=== PATIENT | male | born 1950 | race Caucasian/White ===

== ENCOUNTER 2018-08-26 08:30 | Day surgery (SDC) | payer MEDICARE, OTHER ==
[2018-08-25 10:10] VITALS: BMI 24.6
[~2018-08-26 08:30] MED LIST: LACTATED RINGERS 1,000 ML IV SCH
[2018-08-26 09:31] VITALS: TEMP 97.6
[2018-08-26] MEDS ORDERED: LIDOCAINE 1% 20 ML VIAL (10MG/ML) FOR IV START INTRADERMA ONE (09:33)
[2018-08-26 09:48] LABS: Glucose,Whole Blood 98 mg/dL (75-99)
[2018-08-26] MEDS ORDERED: PROPOFOL 10 MG/ML 20 ML VIAL IV ONE (09:54)
--- NOTE | 2018-08-26 10:11 | P.PCN ---
Date of Procedure: 08/26/18 Procedure(s) Performed: BRIEF HISTORY: Patient is a 67-year-old pleasant white male, scheduled for an elective colonoscopy as a part of screening for colorectal neoplasia. Last colonoscopy was 10 years ago. PROCEDURE PERFORMED: Colonoscopy. PREOPERATIVE DIAGNOSIS: Screening for colon cancer IV sedation per Anesthesia. PROCEDURE: After informed consent was obtained, the patient, was brought into the endoscopy unit. IV sedation was administered by Anesthesia under continuous monitoring. Digital rectal examination was normal. Initially the Olympus CF- 160 flexible video colonoscope was then inserted in the rectum, gradually advanced into the cecum without any difficulty. Careful examination was performed as the scope was gradually being withdrawn. Ileocecal valve and the appendiceal orifice were visualized and appeared normal. Prep was excellent. Mucosa of the cecum, ascending colon, transverse colon, descending colon, sigmoid colon, and rectum appeared normal. Retroflexion was performed in the rectum and no lesions were seen. The patient tolerated the procedure well. IMPRESSION: Normal-appearing colon from rectum to cecum with no evidence of colorectal neoplasia. RECOMMENDATIONS: Findings of this examination were discussed with the patient as well as his family. He was advised to have a repeat screening colonoscopy in 10 years.
[2018-08-26 10:16] VITALS: PULSE 67
[2018-08-26 10:32] VITALS: BP 126/74; RESP 16
== END 2018-08-26 11:18 | disposition home or self-care (01) ==
LOC: ORWHC2ENDO 08:30
PROVIDERS: ATTEND Internal Medicine Gastroenterology
DX: Z12.11 Encounter for screening for malignant neoplasm of colon (principal); I10 Essential (primary) hypertension; E78.5 Hyperlipidemia, unspecified; E11.9 Type 2 diabetes mellitus without complications; K21.9 Gastro-esophageal reflux disease without esophagitis; Z95.1 Presence of aortocoronary bypass graft; Z79.899 Other long term (current) drug therapy; Z79.84 Long term (current) use of oral hypoglycemic drugs; Z79.1 Long term (current) use of non-steroidal anti-inflammatories (NSAID); Z87.891 Personal history of nicotine dependence
CPT/HCPCS: J2704; G0121; 45378

== ENCOUNTER 2024-03-04 05:34 | Inpatient (IN) | payer MEDICARE, OTHER ==
[~2024-03-04 05:34] MED LIST changes: +ASPIRIN 325 MG TAB ONE; +ATORVASTATIN 80 MG TAB ONE; +HEPARIN SOD,PORK IN 0.45% NACL 250 ML IV ONE; +HEPARIN SODIUM 1,000 UN/ML (10ML VL) ONE; -LACTATED RINGERS 1,000 ML IV SCH
[2024-03-04] MEDS ORDERED: fentaNYL (PF) 50 MCG/ML 2 ML AMP ONE (13:46)
[2024-03-04] MEDS ORDERED: MIDAZOLAM 2 MG/2 ML VIAL ONE (13:46)
[2024-03-04] MEDS ORDERED: HEPARIN SODIUM 1,000 UN/ML (10ML VL) ONE (13:46)
[2024-03-04] MEDS ORDERED: ASPIRIN 325 MG TAB ONE (13:46)
[2024-03-04] MEDS ORDERED: ATORVASTATIN 80 MG TAB ONE ×2 (13:46→21:11)
[2024-03-04] MEDS ORDERED: VERAPAMIL 2.5 MG/ML 4 ML VIAL ONE (14:06)
[2024-03-04] MEDS ORDERED: SODIUM CHLORIDE 0.9% 1,000 ML BAG ONE (14:06)
[2024-03-04] MEDS ORDERED: LIDOCAINE 1% INJ 10MG/ML (20 ML MDV) ONE (14:06)
[2024-03-04] MEDS ORDERED: TICAGRELOR 90 MG TAB ONE (14:16)
[2024-03-04] MEDS ORDERED: NITROGLYCERIN-D5W PMX 25 MG/250 ML BTL IV ONE (14:55)
[2024-03-04] MEDS: IOPAMIDOL-370 200ML BTL INJ ONE (15:23)
[2024-03-05] MEDS ORDERED: LIDOCAINE VISCOUS 2% 15 ML CUP ONE (00:01)
[2024-03-05] MEDS ORDERED: MAG HYDROX/AL HYDROX/SIMETH 30 ML CUP ONE (00:01)
[2024-03-05] MEDS ORDERED: HYOSCYAMINE ELIXIR 250 MCG/10 ML BTL ONE (00:01)
[2024-03-05] MEDS ORDERED: ASPIRIN 81 MG ONE (08:30)
[2024-03-05] MEDS ORDERED: TICAGRELOR 90 MG TAB ONE ×2 (12:13→21:13)
[2024-03-05] MEDS ORDERED: LOSARTAN 25 MG TAB ONE (12:13)
[2024-03-05] MEDS ORDERED: METOPROLOL TARTRATE 25 MG TAB ONE ×2 (12:13→21:13)
[2024-03-06] MEDS ORDERED: TICAGRELOR 90 MG TAB ONE ×2 (06:27→10:33)
[2024-03-06] MEDS ORDERED: LOSARTAN 25 MG TAB ONE ×2 (06:27→10:33)
[2024-03-06] MEDS ORDERED: METOPROLOL TARTRATE 25 MG TAB ONE ×2 (06:27→10:33)
[2024-03-06] MEDS ORDERED: ATORVASTATIN 80 MG TAB ONE (10:33)
[2024-03-06] MEDS ORDERED: ASPIRIN 325 MG TAB ONE (10:33)
[2024-03-06] MEDS ORDERED: fentaNYL (PF) 50 MCG/ML 2 ML AMP ONE ×2 (13:55→22:16)
[2024-03-06] MEDS ORDERED: HEPARIN SODIUM 1,000 UN/ML (10ML VL) ONE ×2 (13:55→16:39)
[2024-03-06] MEDS ORDERED: MIDAZOLAM 2 MG/2 ML VIAL ONE ×3 (13:56→21:46)
[2024-03-06] MEDS ORDERED: LIDOCAINE 1% INJ 10MG/ML (20 ML MDV) ONE ×2 (13:56→16:49)
[2024-03-06] MEDS ORDERED: ONDANSETRON 4 MG/2 ML VIAL ONE (17:44)
[2024-03-07] MEDS ORDERED: SODIUM CHLORIDE 0.9% 250 ML BAG ONE (00:01)
[2024-03-07] MEDS ORDERED: TICAGRELOR 90 MG TAB ONE ×3 (00:01→20:44)
[2024-03-07] MEDS ORDERED: NOREPINEPHRINE 1 MG/ML 4 ML VIAL IV ONE (00:01)
[2024-03-07] MEDS ORDERED: HYDROmorphone 0.5 MG/0.5 ML SYRINGE ONE (04:06)
[2024-03-07] MEDS ORDERED: ASPIRIN 81 MG ONE (09:40)
[2024-03-07] MEDS ORDERED: LOSARTAN 50 MG TAB ONE (09:40)
[2024-03-07] MEDS ORDERED: PANTOPRAZOLE 40 MG TABLET PO ONE (09:40)
[2024-03-07] MEDS ORDERED: MAGNESIUM SULFATE-D5W PMX 100 ML IVPB ONE (09:41)
[2024-03-07] MEDS ORDERED: MORPHINE SULFATE 2 MG/ML SYRINGE ONE ×3 (10:19→22:39)
[2024-03-07] MEDS ORDERED: ATORVASTATIN 40 MG TAB ONE (13:27)
[2024-03-08] MEDS ORDERED: ASPIRIN 81 MG ONE (08:32)
[2024-03-08] MEDS ORDERED: PANTOPRAZOLE 40 MG TABLET PO ONE (08:32)
[2024-03-08] MEDS ORDERED: ATORVASTATIN 40 MG TAB ONE (08:32)
[2024-03-08] MEDS ORDERED: TICAGRELOR 90 MG TAB ONE ×2 (08:33→21:04)
[2024-03-08] MEDS ORDERED: METOPROLOL TARTRATE 12.5 MG TAB ONE ×2 (10:47→21:04)
[2024-03-09] MEDS ORDERED: DILTIAZEM 125 MG/25 ML VIAL IV ONE (00:01)
[2024-03-09] MEDS ORDERED: SODIUM CHLORIDE 0.9% 100 ML BAG ONE (00:01)
[2024-03-09] MEDS ORDERED: ZOLPIDEM 5 MG TAB ONE ×2 (00:22→21:46)
[2024-03-09] MEDS ORDERED: NITROGLYCERIN SL TABS 0.4 MG TAB SUBLINGUAL ONE ×2 (03:24→03:32)
[2024-03-09] MEDS ORDERED: MORPHINE SULFATE 2 MG/ML SYRINGE ONE (03:44)
[2024-03-09] MEDS ORDERED: ALPRAZolam 0.25 MG TAB ONE (05:41)
[2024-03-09] MEDS ORDERED: METOPROLOL TARTRATE 12.5 MG TAB ONE ×3 (05:57→21:43)
[2024-03-09] MEDS ORDERED: ASPIRIN 81 MG ONE (07:42)
[2024-03-09] MEDS ORDERED: TICAGRELOR 90 MG TAB ONE ×2 (07:42→21:43)
[2024-03-09] MEDS ORDERED: PANTOPRAZOLE 40 MG TABLET PO ONE (07:42)
[2024-03-09] MEDS ORDERED: ATORVASTATIN 40 MG TAB ONE (07:42)
[2024-03-09] MEDS ORDERED: POTASSIUM CHLORIDE ER 20 MEQ TAB.ER PO ONE ×2 (11:46→13:29)
[2024-03-10] MEDS ORDERED: ALPRAZolam 0.25 MG TAB ONE (01:58)
[2024-03-10] MEDS ORDERED: SODIUM CHLORIDE 0.9% 100 ML BAG IV ONE (04:00)
[2024-03-10] MEDS ORDERED: DILTIAZEM 125 MG/25 ML VIAL IV ONE (04:00)
[2024-03-10] MEDS ORDERED: METOPROLOL TARTRATE 12.5 MG TAB ONE (05:53)
[2024-03-10] MEDS ORDERED: POTASSIUM CHLORIDE ER 20 MEQ TAB.ER PO ONE ×3 (07:03→20:43)
[2024-03-10] MEDS ORDERED: PANTOPRAZOLE 40 MG TABLET PO ONE (09:55)
[2024-03-10] MEDS ORDERED: ATORVASTATIN 40 MG TAB ONE (09:55)
[2024-03-10] MEDS ORDERED: ASPIRIN 81 MG ONE (09:56)
[2024-03-10] MEDS ORDERED: TICAGRELOR 90 MG TAB ONE ×2 (09:56→20:43)
[2024-03-10] MEDS ORDERED: HYDROmorphone 0.5 MG/0.5 ML SYRINGE ONE (09:56)
[2024-03-10] MEDS ORDERED: METOPROLOL TARTRATE 50 MG TAB ONE ×2 (11:13→20:43)
[2024-03-10] MEDS ORDERED: HYDROcodone/APAP 5-325MG 1 EACH TAB ONE ×2 (15:01→20:42)
[2024-03-11] MEDS ORDERED: SODIUM FERRIC GLUCONAT-SUCROSE 62.5 MG/5 ML VIAL ONE (00:01)
[2024-03-11] MEDS ORDERED: SODIUM CHLORIDE 0.9% 100 ML BAG ONE (00:01)
[2024-03-11] MEDS ORDERED: TRIAMCINOLONE ACET 0.5% CREAM 15 GM TUBE TOPICAL ONE (00:01)
[2024-03-11] MEDS ORDERED: POTASSIUM CHLORIDE ER 20 MEQ TAB.ER PO ONE ×2 (00:05→16:14)
[2024-03-11] MEDS ORDERED: PANTOPRAZOLE 40 MG TABLET PO ONE (08:35)
[2024-03-11] MEDS ORDERED: ASPIRIN 81 MG ONE (08:36)
[2024-03-11] MEDS ORDERED: METOPROLOL TARTRATE 50 MG TAB ONE ×2 (08:36→20:24)
[2024-03-11] MEDS ORDERED: TICAGRELOR 90 MG TAB ONE (08:36)
[2024-03-11] MEDS ORDERED: ATORVASTATIN 40 MG TAB ONE (08:36)
[2024-03-11] MEDS ORDERED: LIDOCAINE 4% PATCH TOPICAL ONE (15:21)
[2024-03-11] MEDS ORDERED: diphenhydrAMINE 25 MG CAP PO PRN (21:06)
[2024-03-11] MEDS ORDERED: MORPHINE SULFATE 2 MG/ML SYRINGE IVP PRN (21:10)
[2024-03-11] MEDS ORDERED: HYDROcodone/APAP 5-325MG 1 EACH TAB PO PRN (21:17)
[2024-03-11] MEDS ORDERED: ZOLPIDEM 5 MG TAB PO PRN (21:18)
[2024-03-11] MEDS ORDERED: ALPRAZolam 0.25 MG TAB PO PRN (21:19)
[2024-03-11] MEDS ORDERED: MAG HYDROX/AL HYDROX/SIMETH 30 ML CUP PO PRN (21:19)
[2024-03-11] MEDS ORDERED: ATROPINE SULFATE 0.1 MG/ML 10ML SYRINGE IVP PRN (21:20)
[2024-03-11] MEDS ORDERED: HYDROmorphone 0.5 MG/0.5 ML SYRINGE IVP PRN (21:22)
[2024-03-11] MEDS ORDERED: NITROGLYCERIN SL TABS 0.4 MG TAB SUBLINGUAL PRN (21:24)
[2024-03-12] MEDS: TRIAMCINOLONE ACET 0.5% CREAM 15 GM TUBE TOPICAL SCH (03:10)
[2024-03-12] MEDS: Potassium Replacement Protocol 1 EACH MISC MISCELLANE ONE (03:10)
[2024-03-12] MEDS: PANTOPRAZOLE 40 MG TABLET PO SCH (06:02)
--- NOTE | 2024-03-12 07:33 | XR ---
EXAMINATION TYPE: XR chest 2V DATE OF EXAM: 03/12/2024 6:55 AM CLINICAL INDICATION: Male, 73 years old with history of Left pneumothorax; [facility] COMPARISON: Chest radiographs from 10/10/2021 TECHNIQUE: XR chest 2V Frontal view of the chest. FINDINGS: Lungs/Pleura: Trace left pleural effusion. There is no evidence of right pleural effusion, focal cons olidation, or pneumothorax. Pulmonary vascularity: Unremarkable. Heart/mediastinum: Cardiomediastinal silhouette is unremarkable. Musculoskeletal: No acute osseous pathology. IMPRESSION: No appreciable pneumothorax on today's exam. Trace left pleural effusion.
[2024-03-12] MEDS ORDERED: ASPIRIN 81 MG ONE (08:39)
[2024-03-12] MEDS ORDERED: METOPROLOL TARTRATE 50 MG TAB ONE (08:39)
[2024-03-12] MEDS: ATORVASTATIN 40 MG TAB PO SCH (08:44)
[2024-03-12] MEDS: ASPIRIN 81 MG PO SCH (08:44)
[2024-03-12] MEDS: METOPROLOL TARTRATE 50 MG TAB PO SCH (08:44)
[2024-03-12] MEDS: TICAGRELOR 90 MG TAB PO SCH (08:45)
[2024-03-12 10:09] VITALS: BP 132/78; PULSE 115; RESP 18; TEMP 98
--- NOTE | 2024-03-12 10:18 | P.PN ---
Subjective Progress Note Date: 03/12/24 SUBJECTIVE: Doing well from cardiovascular standpoint. Hemoglobin is stable, no further signs of bleeding, bilateral groin hematomas are is stable with no increase in size. CT abdomen was negative for any retroperitoneal bleed. Received 2 IV iron infusions. No chest pain or shortness of breath. Lidocaine patch helped with subcutaneous left-sided chest pain that he had from paracentesis. No signs of pericarditis. PHYSICAL EXAMINATION Vital signs reviewed. Head: Normocephalic. Eyes: Sclerae nonicteric. Neck: Brisk carotid upstroke, no jugular venous distention. Lungs: Clear to auscultation. Mild diminished breath sounds in bilateral bases Heart: Regular rate and rhythm, S1-S2, no S3, Abdomen: Soft nontender, bowel sounds present, Extremities: No edema, hematoma noticed in bilateral groin, stable Neuro: Alert, oriented, no focal neurological deficits. Detailed neuro exam was not performed. ASSESSMENT NSTEMI status post complicated PCI to RCA status post RCA perforation with pericardial tamponade requiring pericardiocentesis. Multivessel CAD Essential hypertension Anemia PLAN Patient is okay to be discharged from cardiovascular standpoint. Continue aspirin, Brilinta 90 twice daily, atorvastatin 40, metoprolol 50 twice daily, sublingual nitroglycerin, Discharge on p.o. iron supplementation. Follow-up outpatient with Dr. Dennis in next 1 week. Detailed instructions were given to the patient. Bo Velasquez MD, FACC, RPVI Thank you for allowing [facility] to participate in this patient's care. Please contact us in case of any followup questions. Objective - Vital Signs Vital signs: Vital Signs Temp 98 F 03/12/24 08:00 Pulse 115 H 03/12/24 08:00 Resp 18 03/12/24 08:00 BP 132/78 03/12/24 08:00 Pulse Ox 99 03/12/24 08:00 FiO2 Intake & Output 03/11/24 03/12/24 03/12/24 18:59 06:59 18:59 Weight 79.5 kg
--- NOTE | 2024-03-12 11:29 | P.DS ---
Providers Date of admission: 03/04/24 05:34 Expected date of discharge: 03/12/24 Attending physician: Kaiser Reynolds MD Consults: 03/03/24 22:07 Consult Physician Routine Consulting Provider: Stanford Scott Consult Reason/Comments: STEMI Do you want consulting provider notified?: Already Contacted Placement Type Exists?: Yes Primary care physician: Stated None Hospital Course: Discharge diagnoses -Non-ST ovation myocardial infarction -Multivessel CAD -Pericardial effusion -Acute blood loss anemia -Bilateral pleural effusions -Moran disease -Essential hypertension 73-year-old male presented to the hospital with lower extremity. Had elevated troponin, was on heparin drip. Was seen by cardiology service who did a heart catheterization with stenting. Procedure was complicated by hemopericardium due to RCA rupture. After that he had a pericardiocentesis procedure with drain put in. He was moved to the ICU and was requiring pressors due to hypotension. His hemoglobin dropped and he was transfused packed red blood cells. Also had IV iron infusion. Also postoperatively he had bilateral groins hematoma, CT scan of the abdomen pelvis was negative for retroperitoneal bleeding. Hematomas were stable upon discharge. Follow-up echocardiogram showed stabilized pericardial size. No further bleeding was noted. He also developed bilateral pleural effusion, followed by pulmonary with a left- sided thoracentesis. 950 cc of fluid was taken out. He was subsequently started on aspirin, Brilinta, continued on metoprolol. Statin was added to his regimen. He is currently feeling much better. Hemoglobin stabilized. He was cleared by cardiology for discharge. He will be discharged home in stable condition. Patient was seen and examined on the day of discharge 03/12 Time for discharge 35 minutes. Plan - Discharge Summary New Discharge Prescriptions: New Ferrous Sulfate [Iron (65 MG Elemental)] 325 mg PO TID 30 Days #90 tab Ticagrelor [Brilinta] 90 mg PO BID 30 Days #60 tab Atorvastatin [Lipitor] 40 mg PO DAILY 30 Days #30 tab Continue Omeprazole [PriLOSEC] 20 mg PO AC-BRKFST [place]-3 Acid Ethyl Esters [Lovaza] 1 gm PO BID Aspirin EC [Ecotrin Low Dose] 81 mg PO DAILY ramipriL [Altace] 10 mg PO DAILY Meloxicam [Mobic] 15 mg PO DAILY Ezetimibe [Zetia] 10 mg PO DAILY Metoprolol Succinate (ER) [Toprol XL] 50 mg PO DAILY metFORMIN HCL ER [Glucophage XR] 500 mg PO BID Niacin 1,000 mg PO HS Discontinued Atorvastatin [Lipitor] 20 mg PO HS Furosemide [Lasix] 40 mg PO MOWEFR Potassium Chloride [K-Tab ER] 10 meq PO MOWEFR Ferrous Sulfate [Iron (65 MG Elemental)] 1 each PO DAILY Cholecalciferol (Vitamin D3) [Vitamin D3] 2,000 unit PO DAILY Discharge Medication List Aspirin EC [Ecotrin Low Dose] 81 mg PO DAILY 08/25/18 [History] Ezetimibe [Zetia] 10 mg PO DAILY 08/25/18 [History] Meloxicam [Mobic] 15 mg PO DAILY 08/25/18 [History] Metoprolol Succinate (ER) [Toprol XL] 50 mg PO DAILY 08/25/18 [History] Niacin 1,000 mg PO HS 08/25/18 [History] Magalia-3 Acid Ethyl Esters [Lovaza] 1 gm PO BID 08/25/18 [History] Omeprazole [PriLOSEC] 20 mg PO AC-BRKFST 08/25/18 [History] metFORMIN HCL ER [Glucophage XR] 500 mg PO BID 08/25/18 [History] ramipriL [Altace] 10 mg PO DAILY 08/25/18 [History] Atorvastatin [Lipitor] 40 mg PO DAILY 30 Days #30 tab 03/12/24 [Rx] Ferrous Sulfate [Iron (65 MG Elemental)] 325 mg PO TID 30 Days #90 tab 03/12/24 [Rx] Ticagrelor [Brilinta] 90 mg PO BID 30 Days #60 tab 03/12/24 [Rx]
--- NOTE | 2024-03-12 12:51 | P.PN ---
Subjective Progress Note Date: 03/12/24 Principal diagnosis: Acute none ST elevation myocardial infarction Patient was seen on 03/12/2024, patient came in with acute non-ST elevation myocardial infarction underwent cardiac catheterization and this was complicated by RCA perforation with pericardial effusion tamponade and required pericardiocentesis. In addition the patient developed left-sided hemothorax and left apical pneumothorax. I saw this patient while in the ICU, and I performed thoracentesis on 03/10/2024, and there was dramatic improvement noted in his pleural effusion/hemothorax. And the left-sided apical pneumothorax has also resolved. Patient is doing well today, asymptomatic, and I will clear for discharge if cleared by cardiology. Objective - Vital Signs Vital signs: Vital Signs Temp 98 F 03/12/24 08:00 Pulse 115 H 03/12/24 08:00 Resp 18 03/12/24 08:00 BP 132/78 03/12/24 08:00 Pulse Ox 99 03/12/24 08:00 FiO2 Intake & Output 03/11/24 03/12/24 03/12/24 18:59 06:59 18:59 Weight 79.5 kg - Exam General: The patient is awake and alert, in no distress, and does not appear acutely ill. Skin: Skin is warm and dry and no rashes or lesions are noted. Eye: Pupils are equal, round and reactive to light, extra-ocular movements are intact; there is normal conjunctiva bilaterally. Ears, nose, mouth and throat: There are moist mucous membranes and no oral lesions. Neck: The neck is supple, there is no tenderness or JVD. Cardiovascular: There is a regular rate and rhythm. No murmur, rub or gallop is appreciated. Respiratory: Clear bilaterally no rhonchi no wheezes Gastrointestinal: Soft, non-distended, non-tender abdomen without masses or organomegaly noted. There is no rebound or guarding present. Bowel sounds are unremarkable. Back: There is no tenderness to palpation in the midline. There is no obvious deformity. Musculoskeletal: Normal ROM, no tenderness, There is no pedal edema. There is no calf tenderness or swelling. No cords were appreciated. Neurological: CN II-XII intact, Cranial nerves III through XII are intact. There are no obvious motor or sensory deficits. Coordination appears grossly intact. Speech is normal. Psychiatric: Cooperative, appropriate mood & affect, normal judgment. Assessment and Plan Assessment: Impression: Acute non-ST elevation myocardial infarction Coronary artery disease Status post RCA perforation during cardiac catheterization and stenting Left-sided hemothorax, and left-sided pneumothorax Pericardiac effusion/tamponade requiring pericardiocentesis Recommendation: Pulmonary moreno the patient is doing great, I am clearing the patient for discharge if cleared by other consultants. Patient could see me in the office on outpatient basis postdischarge at 1 week Time with Patient: Less than 30
[2024-03-12] MEDS ORDERED: FERROUS SULFATE 325 MG TAB PO SCH (17:30)
--- NOTE | 2024-03-21 10:45 | XR ---
EXAMINATION TYPE: XR chest 1V DATE OF EXAM: 03/09/2024 10:17 AM CLINICAL INDICATION: Male, 73 years old with history of DAILY PORTABLE; [facility] COMPARISON: Chest radiographs from 10/10/2021 TECHNIQUE: XR chest 1V Frontal view of the chest. FINDINGS: Lungs/Pleura: Left apical pneumothorax remains. There is no evidence of pleural effusion, focal conso lidation, or right pneumothorax. Pulmonary vascularity: Unremarkable. Heart/mediastinum: Cardiomediastinal silhouette is unremarkable. Musculoskeletal: No acute osseous pathology. IMPRESSION: Left apical pneumothorax remains
--- NOTE | 2024-03-24 13:04 | XR ---
EXAMINATION TYPE: XR chest 1V portable DATE OF EXAM: 03/10/2024 COMPARISON: Chest radiographs from 03/09/2024 TECHNIQUE: XR chest 1V portable Portable AP radiograph of the chest. CLINICAL INDICATION:Male, 73 years old with history of LEFT THORACENTESIS; FINDINGS: Lungs/Pleura: No appreciable pneumothorax. Blunting of the left costophrenic angle. No focal consolid ation. Pulmonary vascularity: Unremarkable. Heart/mediastinum: Cardiomediastinal silhouette is enlarged and stable. Atherosclerotic calcificatio ns are seen in the aorta. Musculoskeletal: No acute osseous pathology. IMPRESSION: Trace left pleural effusion without appreciable pneumothorax.
--- NOTE | 2024-03-28 13:19 | CT ---
Patient: Son Sewell Ordering Physician: Unknown, Unknown ID: [id number] Phone, Pager: Phone: N/A Pager: N/A : 1950 Age/Gender: 73Y, O Primary Location: N/A Procedure: RENAL STONE Study Date: 03/09/2024 9:59:07 AM EXAMINATION TYPE: CT abdomen pelvis wo con DATE OF EXAM: 03/09/2024 COMPARISON: None INDICATION: Retroperitoneal hematoma DLP: 714.8 mGycm, Automated exposure control for dose reduction was used. CONTRAST: 0 mL of Isovue 300. Study performed without Oral Contrast TECHNIQUE: Axial images were obtained from above the diaphragm to the pubic rami in the axial plane a t 5 mm thick sections. Reconstructed images are reviewed on the computer in the coronal plane. FINDINGS: Limited CT sections are obtained the lung bases. Small bilateral pleural effusions are present. Comp ressive atelectasis adjacent to the pleural effusions. There is a small left pneumothorax. This was called to the ICU nurse by Dr. Morales by telephone 1045 hours 03/09/2024. Current depth based on supine views is 1.5 cm Moderate pericardial effusion is present.. CT ABDOMEN: No retroperitoneal hematoma identified. Liver: There is a 1.5 cm cyst on the left lobe liver. Spleen: Normal Pancreas: Normal Adrenal glands: The adrenal glands are normal. Gallbladder: Normal Kidneys: No masses are evident. No hydronephrosis is present. No cysts are present. No renal stone s are identified. Aorta: Vascular calcification is within the aorta. Inferior vena cava: Normal. CT PELVIS: Small amount of free fluid is within the pelvis measuring 7 Hounsfield units. Loops of bowel within the abdomen and pelvis are normal. Diverticular changes are within the sigmoid colon. No adjacent inflammatory changes evident. Appendix: Not identified. No dilated tubular structure or inflammatory changes evident. Urinary bladder: Decompressed with Goldberg catheter. Genitourinary structures: Prostate has mild prominence. Osseous structures: No suspicious lytic or sclerotic lesions. IMPRESSION: 1. Small left sided pneumothorax. This currently has a depth of 1.5 cm within the [id number] but is incompletely visualized. Report was called to the patient's nurse by Dr. Morales by telephone at t he time of interpretation 1045 hours 03/09/2024. 2. Small bilateral pleural effusions with adjacent compressive atelectasis. 3. Moderate pericardial effusion. 4. No retroperitoneal hematoma identified. 5. Small amount of free fluid within the pelvis.
--- NOTE | 2024-03-31 08:32 | CA ---
Transthoracic Echo Report Name: Son Wilkes MRN: [id number] Age: 73 Gender: M : 1950 Exam Date: 03/06/2024 16:51 Exam Location: [place] [facility] Ht (in): Wt (lb): Ordering Physician: Attending/Referring Phys: Observer [employer]ing Adilia Martin RDCS Procedure CPT: Indications: Cardiac Hx: Technical Quality: Technically difficult study Contrast 1: Total Dose (mL): Contrast 2: Total Dose (mL): MEASUREMENTS (Male / Female) Normal Values FINDINGS Left Ventricle Right Ventricle Right Atrium Left Atrium Mitral Valve Aortic Valve Tricuspid Valve Pulmonic Valve Pericardium Pericardial effusion. Aorta CONCLUSIONS Stat during catheterization for pericardial effusion. Limited echo. Pericardial effusion was noted, small in size Previewed by: Dr. Abner Viear MD (Electronically Signed) Final Date: 08 March 2024 07:16
--- NOTE | 2024-03-31 08:37 | CA ---
Transthoracic Echo Report Name: Son Wilkes Age: 73 Gender: M : 1950 Exam Date: 03/07/2024 07:35 Exam Location: [place] [facility] Ht (in): 73 Wt (lb): 172 Ordering Physician: Attending/Referring Phys: Cloth Bleaching Range Tender Adilia Martin RDCS Procedure CPT: Indications: Cardiac Hx: Technical Quality: Very technically difficult study Contrast 1: Definity Total Dose (mL): 2 Contrast 2: Total Dose (mL): MEASUREMENTS (Male / Female) Normal Values 2D ECHO LV Diastolic Volume MOD BP 76.2 cm??? 67 - 155 / 56 - 104 cm??? LV Systolic Volume MOD BP 24.9 cm??? 22 - 58 / 19 - 49 cm??? LV Ejection Fraction MOD BP 67.3 % >= 55 % LV Cardiac Index MOD BP 2534.1 cm???/min???m??? LV Diastolic Volume MOD 4C 74.1 cm??? LV Systolic Volume MOD 4C 24.3 cm??? LV Ejection Fraction MOD 4C 67.2 % LV Cardiac Index MOD 4C 2462.1 cm???/min???m??? LV Diastolic Length 4C 7.6 cm LV Systolic Length 4C 6.1 cm LV Diastolic Volume MOD 2C 74.5 cm??? LV Systolic Volume MOD 2C 24.6 cm??? LV Ejection Fraction MOD 2C 67.0 % LV Cardiac Index MOD 2C 2466.0 cm???/min???m??? LV Diastolic Length 2C 7.2 cm LV Systolic Length 2C 5.8 cm FINDINGS Left Ventricle Left ventricular ejection fraction is estimated at 60-65 %. Right Ventricle Right Atrium Left Atrium Mitral Valve Aortic Valve Tricuspid Valve Pulmonic Valve Pericardium No pericardial effusion. Aorta CONCLUSIONS Limited echo. Normal left ventricular systolic function No pericardial effusion Definity ECHO contrast used for improved visualization of the endocardial borders (inadequate visualization of two or more contiguous segments). Previewed by: Dr. Abner Viera MD (Electronically Signed) Final Date: 07 March 2024 11:55
--- NOTE | 2024-03-31 08:51 | CA ---
Transthoracic Echo Report Name: Son Wilkes Age: 73 Gender: M : 1950 Exam Date: 03/08/2024 09:08 Exam Location: [place] [facility] Ht (in): 72 Wt (lb): 172 Ordering Physician: Attending/Referring Phys: Drying Machine Back Tender Samantha Tamez RDCS Procedure CPT: Indications: Cardiac Hx: pericardial window, limied study Technical Quality: Poor Contrast 1: Total Dose (mL): Contrast 2: Total Dose (mL): MEASUREMENTS (Male / Female) Normal Values FINDINGS Left Ventricle Left ventricular ejection fraction is estimated at 55-60 %. Right Ventricle Right Atrium Left Atrium Mitral Valve Aortic Valve Tricuspid Valve Pulmonic Valve Pericardium Small pericardial effusion. Aorta CONCLUSIONS Technically difficult study. Limited echo. Normal left ventricular size and systolic function Small pericardial effusion Previewed by: Dr. Abner Viera MD (Electronically Signed) Final Date: 08 March 2024 12:16
--- NOTE | 2024-04-03 11:27 | XR ---
Melodie Son ID: [id number] : 1950 EXAMINATION TYPE: XR chest 1V DATE OF EXAM: 03/08/2024 COMPARISON: 03/07/2024 HISTORY: 73-year-old male shortness of breath, ICU follow-up TECHNIQUE: Single frontal view of the chest is obtained. FINDINGS: Heart border line in size. Mild patchy left basilar opacity similar to slightly increased. Remainder of the lungs are clear. There is a small 9 mm left apical pneumothorax noted. The previous left-sided catheter is no longer seen. Minimal atherosclerotic arch calcification. IMPRESSION: 1. New small 9 mm left apical pneumothorax. The previous left-sided catheter is no longer seen. 2. Some increasing patchy opacity at the left base. With downtime, critical findings are being relayed to the floor by lance Zimmerman technologist.
--- NOTE | 2024-04-04 10:51 | XR ---
Son Sewell ID: [id number] : 1950 EXAMINATION TYPE: XR chest 1V DATE OF EXAM: 03/07/2024 COMPARISON: 03/06/2024 HISTORY: 73-year-old ICU follow-up, shortness of breath TECHNIQUE: Single frontal view of the chest. FINDINGS: A catheter is noted at the left base when tip projecting over the lower midline heart. No pneumothorax or sizable pleural effusion. Some mild patchy density at the left base is increased. IMPRESSION: Pleural versus pericardial catheter in place on the left. Some patchy atelectasis or ear ly infiltrate has developed now at the left base.
--- NOTE | 2024-04-06 15:45 | CDI ---
Documentation Clarification Form Date: 04/06/2024 02:59:06 PM From: Yolanda Clark RN, CCDS Phone: [phone] Admit Date: 03/04/2024 05:34:00 AM Patient Name: Son Wilkes Visit Number: [id number] Discharge Date: 03/12/2024 12:24:00 PM ATTENTION: The Clinical Documentation Specialists (CDI) and [facility] Coding Staff appreciate your assistance in clarifying documentation. Please respond to the clarification below the line at the bottom and electronically sign. The CDI & [facility] Coding staff will review the response and follow-up if needed. Please note: Queries are made part of the Legal Health Record. If you have any questions, please contact the author of this message via ITS. Doctor Jovani Dennis: Catheter induced dissection is documented in the 03/06 PCI report. Additional clarification is requested regarding the relationship, if any, that exists between the diagnosis and the procedure. Patients Admitting Diagnosis: NSTEMI, 80% stenosis RCA Post-Operative Diagnosis: NSTEMI, <10% stenosis post procedure, RCA dissection, PDA perforation Procedure performed: PTCA/stents History/Risk Factors: leukopenia and hyperlipidemia. Presents with CP and pressure. Admitted with NSTEMI, s/p PTCA/stents. Clinical Indicators: 03/06 PCI report: "Previous difficulty inserting stent distally and failed balloon with recurrent CP, increased troponin. Therefore 8Fr femoral sheath and 8Fr catheter with guidewire and skylar wire. Rotational atherectomy 1.25mm Daniel balloon. Placed overlapping Xience KAITLIN distally. Final images with catheter induced dissection. Final angiograms distal PDA perforation. Continued leak. Bedside echo with tamponade and therefore pericardial drain. Placed 350cc bloody output from drain. Monitor output and ICU care." 03/07 Cardiology: "patient had proximal RCA dissection - PDA perforation. Had pericardial drain >500cc. Now no drainage." Treatment: 03/06 @17:29 pigtail drainage catheter inserted over guidewire under fluoro into pericardial space, contrast injected through pigtail, pigtail removed by Dr. Dennis, pressure held. Second attempt at access into pericardium. Access obtained; wire inserted under fluoro to verify placement. Dilator exchanged for pigtail catheter, blood aspirated from pericardium through pigtail catheter. Total blood withdrawn 350cc Please clarify the etiology of the dissection/perforated RCA/PDA: [ ] the perforated RCA was due to calcified artery randle [ X ] the perforated RCA was due to the procedure [ ] Other please specify ____ [ ] Unable to determine MTDD
--- NOTE | 2024-04-17 15:51 | PN ---
PROGRESS NOTE At the time of my evaluation, patient was seen in room 375. SUBJECTIVE: Today, patient is doing well. Still reports chest pain, but only positional, much improved from yesterday. He says that sometimes when he takes a deep breath, it is hard to catch it due to onset of pain. I discussed this case with Cardiology yesterday and they are planning to take the patient to heart catheterization due to increased troponins post cath. They are planning to fix the left circumflex lesion today. The patient denies fevers, chills, palpitations, diaphoresis. OBJECTIVE: VITAL SIGNS: Today, patient is afebrile, 166/90, heart rate is 75, 99% on room air. GENERAL: He is in no apparent distress. CHEST: No accessory muscle use. Symmetric chest expansion. EXTREMITIES: Perfusing all extremities well. LABORATORY DATA: Lab work demonstrates a troponin that is down trending to 1.8 as of last check from a peak of 2.7. No CBC or basic metabolic panel to review today. Echocardiogram demonstrates a normal ejection fraction of 55% to 60% with mild inferior apical hypokinesis, mild mitral regurg, trace tricuspid regurg. Telemetry notes some ST changes in leads II and III as well as aVF. ASSESSMENT/PLAN: 1. Non-ST elevation myocardial infarction. Continue aspirin, Brilinta, statin, metoprolol. Patient is n.p.o. for heart catheterization to fix the left circumflex lesion. He is status post PCI to his PDA artery. 2. Daily alcohol use. The patient received alcohol cessation counseling. MMODL / IJN: [id number] /
== END 2024-03-12 12:24 | disposition home or self-care (01) | DRG 321 ==
LOC: EDBD → 3SCARD 05:34
PROVIDERS: ADMIT Student in an Organized Health Care Education/Training Program; ATTEND Student in an Organized Health Care Education/Training Program
PROC: B2111ZZ Fluoroscopy of Multiple Coronary Arteries using Low Osmolar Contrast (ICD-10-PCS; 2024-03-04)
PROC: 4A023N7 Measurement of Cardiac Sampling and Pressure, Left Heart, Percutaneous Approach (ICD-10-PCS; 2024-03-04)
PROC: 0W9D30Z Drainage of Pericardial Cavity with Drainage Device, Percutaneous Approach (ICD-10-PCS; 2024-03-06)
PROC: 3E033XZ Introduction of Vasopressor into Peripheral Vein, Percutaneous Approach (ICD-10-PCS; 2024-03-06)
PROC: B240ZZ3 Ultrasonography of Single Coronary Artery, Intravascular (ICD-10-PCS; 2024-03-06)
PROC: 02C03Z7 Extirpation of Matter from Coronary Artery, One Artery, Orbital Atherectomy Technique, Percutaneous Approach (ICD-10-PCS; 2024-03-06)
PROC: B2101ZZ Fluoroscopy of Single Coronary Artery using Low Osmolar Contrast (ICD-10-PCS; 2024-03-06)
PROC: 03HY32Z Insertion of Monitoring Device into Upper Artery, Percutaneous Approach (ICD-10-PCS; 2024-03-06)
PROC: 4A023N6 Measurement of Cardiac Sampling and Pressure, Right Heart, Percutaneous Approach (ICD-10-PCS; 2024-03-06)
PROC: 4A133B1 Monitoring of Arterial Pressure, Peripheral, Percutaneous Approach (ICD-10-PCS; 2024-03-06)
PROC: 027037Z Dilation of Coronary Artery, One Artery with Four or More Drug-eluting Intraluminal Devices, Percutaneous Approach (ICD-10-PCS; 2024-03-06)
PROC: 4A133J1 Monitoring of Arterial Pulse, Peripheral, Percutaneous Approach (ICD-10-PCS; 2024-03-06)
PROC: 30233N1 Transfusion of Nonautologous Red Blood Cells into Peripheral Vein, Percutaneous Approach (ICD-10-PCS; principal; 2024-03-07)
PROC: 0W9B3ZZ Drainage of Left Pleural Cavity, Percutaneous Approach (ICD-10-PCS; 2024-03-10)
DX: I21.4 Non-ST elevation (NSTEMI) myocardial infarction (principal); T81.11XA Postprocedural cardiogenic shock, initial encounter; D61.818 Other pancytopenia; D62 Acute posthemorrhagic anemia; I31.2 Hemopericardium, not elsewhere classified; I97.51 Accidental puncture and laceration of a circulatory system organ or structure during a circulatory system procedure; I31.4 Cardiac tamponade; I31.39 Other pericardial effusion (noninflammatory); J94.2 Hemothorax; J93.83 Other pneumothorax; T81.10XA Postprocedural shock unspecified, initial encounter; J98.11 Atelectasis; J91.8 Pleural effusion in other conditions classified elsewhere; I47.19 Other supraventricular tachycardia; I95.9 Hypotension, unspecified; D69.59 Other secondary thrombocytopenia; F10.10 Alcohol abuse, uncomplicated; I10 Essential (primary) hypertension; D53.9 Nutritional anemia, unspecified; I48.0 Paroxysmal atrial fibrillation; I25.10 Atherosclerotic heart disease of native coronary artery without angina pectoris; D72.818 Other decreased white blood cell count; E78.5 Hyperlipidemia, unspecified; Y84.0 Cardiac catheterization as the cause of abnormal reaction of the patient, or of later complication, without mention of misadventure at the time of the procedure; Z88.0 Allergy status to penicillin; Z90.49 Acquired absence of other specified parts of digestive tract; Z87.891 Personal history of nicotine dependence; Z79.899 Other long term (current) drug therapy; Z91.048 Other nonmedicinal substance allergy status
CPT/HCPCS: 71045; 71046; 74176; 86850; 86900; 86901; 87040; 93005; 93306; 93308; 99291